=== PATIENT | female | born 1975 | race Two or more races ===

== ENCOUNTER 2024-08-05 08:10 | Inpatient (IN) | payer MEDICAID, SELFPAY ==
[2024-08-05] VITALS (7 sets, daily range): BP systolic 112–130; BP diastolic 79–88; PULSE 83–116; RESP 16–19; TEMP 36–38; O2SAT 98–99; BMI 30.6
--- NOTE | 2024-08-05 08:28 | XR_ITS ---
Examination: CT abdomen and pelvis without contrast. Coronal 3-D reconstructions. Sagittal 2-D reconstructions. Date and time of exam:August 05, 2024 0840 hrs. Indications: Lower abdominal pain and painful urination beginning 3 weeks ago CTDI: vol (mGy): 9.82 DLP: (mGycm): 499 Technique: Axial images of the abdomen have been obtained, 3 mm slice thickness Intravenous contrast material has not been administered. Low dose protocols were performed. One or more of the following dose reduction techniques were used; automated exposure control, adjustment of the mA and/or KV according to patient size, use of iterative reconstruction technique. Findings: Large retrocardiac gastric hernia No focal liver or splenic lesions No gallstones No pancreatic or adrenal mass Moderate left hydronephrosis left hydroureter, no ureteral calculi Aorta normal size No bowel obstruction Normal appendix Axial image 164 demonstrates 30 mm ovoid structure which may represent bowel loop although external iliac lymph node not excluded Colonic diverticulosis Contracted urinary bladder Impression: Moderate left hydronephrosis left hydroureter, no ureteral calculi Axial image 164 demonstrates 30 mm ovoid structure in which may represent bowel loops although extraluminal iliac enlarged lymph node not excluded Recommend follow-up CT scan abdomen pelvis post intravenous and oral contrast to exclude left pelvis lymphadenopathy causing the left hydronephrosis
--- NOTE | 2024-08-05 08:29 | PD.EDRME ---
Rapid Medical Screening Exam RME Arrival date/time: 08/05/24 08:10 48-year-old female presents to the emergency department today stating she has had vaginal infection ongoing for the last 4 months status post hysterectomy Chief Complaint: Urogenital-Female Time Seen by Provider: 08/05/24 08:15 Vital signs: Vital Signs Temperature 100.4 F 08/05/24 08:25 Pulse Rate 116 H 08/05/24 08:25 Respiratory Rate 19 08/05/24 08:25 Blood Pressure 124/79 08/05/24 08:25 Pulse Oximetry (%) 98 08/05/24 08:25 Oxygen Delivery Method Room Air 08/05/24 08:25
[2024-08-05] MEDS: ACETAMINOPHEN 500 MG TABLET 1000 MG PO (08:44)
[2024-08-05 09:18] LABS: Collection Type, Urine Clean Catch
[2024-08-05 09:21] LABS: Lactate (Lactic Acid) 1.2 mMol/L (0.4-2.0)
[2024-08-05 09:22] LABS: Basophils # (Auto) 0.1 Thou/mm3 (0.0-0.2); Basophils % (Auto) 0 % (0-2.5); Eosinophils % (Auto) 0 % (0-10); Hematocrit 29.8 % (36.0-46.0); Hemoglobin 9.7 g/dL (12.0-16.0); Immature Granulocytes % (Auto) 2 % (0-0); Immature Granulocytes Auto 0.21 Thou/mm3 (0.00-0.00); Lymphocytes % (Auto) 7 % (10-50); Mean Corpuscular HGB Conc 32.6 g/dl (31.0-37.0); Mean Corpuscular Hemoglobin 25.6 pg (25.0-35.0); Mean Corpuscular Volume 79 fL (80-100); Monocytes # (Auto) 0.9 Thou/mm3 (0.0-0.8); Monocytes % (Auto) 7 % (0-12); Neutrophils # (Auto) 11.2 Thou/mm3 (1.8-7.7); Neutrophils % (Auto) 84 % (37-80); Nucleated Red Blood Cell % 0 /100 WBC (0); Platelet Count 474 Thou/mm3 (140-440); RDW Standard Deviation 45.3 fL (36.4-46.3); Red Blood Count 3.79 Miln/mm3 (4.00-5.20); White Blood Count 13.3 Thou/mm3 (3.6-11.0)
[2024-08-05 09:24] LABS: Bilirubin,Urine Negative (Negative); Blood,Urine Negative (Negative); Clarity,Urine Clear (Clear/Hazy); Color,Urine Yellow (Lt Yel-Yel); Culture Indicated,Urine Not Indicated; Glucose, Urine Negative (Negative); Ketones,Urine Trace (Negative); Leukocyte Esterase,Urine Positive (Negative); Nitrite,Urine Negative (Negative); Protein,Urine 1+ (Neg - Trace); RBC,Urine 3 /hpf (0-3); Specific Gravity,Urine 1.023 (1.001-1.035); Squamous Epithelial Cell,Urine 1 /hpf (0-5); Urobilinogen,Urine Negative mg/dL (0.0-1.0); WBC,Urine 9 /hpf (0-5)
[2024-08-05 09:49] LABS: Alanine Aminotransferase 50 U/L (10-49); Albumin, Serum 4.8 gm/dL (3.5-5.0); Albumin/Globulin Ratio 1.5 (1.2-2.2); Alkaline Phosphatase 205 U/L (46-116); Anion Gap 10 (7-16); Aspartate Amino Transferase 27 U/L (0-34); BUN/Creatinine Ratio 10 Ratio (12-20); Bilirubin,Total 0.8 mg/dL (0.3-1.2); Blood Urea Nitrogen 10 mg/dL (9-23); Calcium 9.6 mg/dL (8.3-10.6); Calcium (Corrected) 9.6 mg/dL (8.5-10.1); Carbon Dioxide 25.2 mMol/L (20.0-31.0); Chloride 98 mMol/L (98-107); Estimated Creatinine Clearance 61.7 mL/min (>60); Globulin 3.3 gm/dL (2.3-3.5); Glucose 116 mg/dL (74-106); Lipase 33 U/L (12-53); Osmolality,Calculated 266 (275-295); Potassium 3.8 mMol/L (3.4-5.1); Procalcitonin 0.29 ng/ml (0.0-0.49); Sodium 133 mMol/L (136-145); Total Protein 8.1 gm/dL (5.7-8.2); eGFR > 60 See Note
--- NOTE | 2024-08-05 13:05 | XR_ITS ---
Examination: CT abdomen with intravenous contrast CT pelvis with intravenous contrast 2-D coronal reconstructions 2-D sagittal reconstructions Date and time of exam:August 05, [address] abdomen pelvis without contrast 0840 hrs. This morning Indications: Leaking urine today, fever, clinical diagnosis urinary tract infection. CTDI: vol (mGy) 20.1 DLP: (mGycm) 973 Technique: Multiple axial sections of the abdomen and pelvis have been obtained. 64 slice high-resolution scanner used. 3 mm axial sections have been obtained, post intravenous injection 60 cc [id number] 2-D sagittal, coronal reconstructions obtained. Low dose protocols were performed. One or more of the following dose reduction techniques were used; automated exposure control, adjustment of the mA and/or KV according to patient size, use of iterative reconstruction technique. Findings: Large retrocardiac gastric hernia No focal liver or splenic lesions No gallstones No pancreatic mass Moderate left hydronephrosis left hydroureter which appears to be secondary to 3 cm left external iliac lymph node axial image 165 Cystic mass fluid containing anterior to the rectum and posterior to the urinary bladder, axial image 181, 4.4 cm transverse dimension AP dimension 1.8 cm Contracted urinary bladder Impression: Moderate left hydronephrosis left hydroureter which appears to be secondary to 3 cm left external iliac lymph node, recommend PET CT scan follow-up Cystic fluid containing mass anterior to the rectum and posterior to the urinary bladder, axial image 181, sagittal image 97, 4.4 cm transverse dimension AP dimension 1.8 cm, consider abscess at this site, clinical correlation advised
--- NOTE | 2024-08-05 13:06 | EDNOTE_ITS ---
<Statement entered by Lorena Marie MD - 08/05/24 17:53> As co-signing physician, I was present and available for consult prn. I concur with the plan and care as documented by the midlevel provider. ED General RME/HPI General Chief complaint: Urogenital-Female Stated complaint: VOMITING/FEVER x 3 WKS, UTI x 3 MONTHS Time Seen by Provider: 08/05/24 08:15 Arrival date/time: 08/05/24 08:10 CC: Left lower quadrant abdominal pain HPI ongoing for the past 2 weeks with a progressive increase in severity. Was seen by Dr. Ms. Ziegler 4 days ago and started on antibiotics and was told if there is a worsening of symptoms return the emergency room for IV antibiotics. The patient had a hysterectomy 3 months ago and has had continued to have admissions for abdominal pain. Patient is awake alert oriented low-grade fever mild discomfort but not in any acute distress. RME / HPI RME / HPI narrative: 08/05/24 08:10 48-year-old female presents to the emergency department today stating she has had vaginal infection ongoing for the last 4 months status post hysterectomy Related Data Home Medications ?Medication ?Instructions ?Recorded ?Confirmed docusate sodium 100 mg capsule 100 mg PO QDAY 04/08/24 04/09/24 olmesartan 20 mg tablet (Benicar) 10 mg PO QDAY 04/08/24 04/09/24 sennosides 8.6 mg tablet (senna) 8.6 mg PO BID PRN Constipation 04/08/24 04/09/24 rhubarb root extract 4 mg tablet 4 mg PO QDAY 04/09/24 04/09/24 (Estroven Complete Menopause Relief) Allergies Allergy/AdvReac Type Severity Reaction Status Date / Time No Known Allergies Allergy Verified 08/05/24 08:13 Review of Systems Review of Systems Narrative Review of Systems: GEN: No fever, no chills, no weight loss EYES: No discharge, no visual changes, no pain HEENT: No ear pain, no congestion, no sore throat PULM: No shortness of breath, no cough, no congestion CV: No chest pain, no dyspnea on exertion, no palpitations GI: No nausea, no vomiting, no diarrhea, + pain, no constipation : No frequency, no urgency, no dysuria MUSC/SKEL: No joint pain, no back pain SKIN: No rash PSYCH: No hallucinations, no depression HEME/LYMPH: No easy bleeding or bruising tendencies NEURO: No weakness, no headache Past Medical History Past Medical History NEUROLOGIC: Negative Neurological Disorders or Seizures CARDIAC: Positive Hypertension and Varicose Veins; Negative Cardiac Disorders or Congestive Heart Failure RESPIRATORY: Negative Chronic Obstructive Pulmonary Disease (COPD) or Asthma GASTROINTESTINAL: Positive Gastrointestinal Disorders and Obesity; Negative Hepatitis GENITOURINARY: Negative Genitourinary Disorders or Renal Disease REPRODUCTIVE: Positive Previous Pregnancies; Negative Genital Herpes, Gonorrhea or Syphilis MUSCULOSKELETAL: Negative Musculoskeletal Disorders ENDOCRINE: Negative Endocrine Disorders, Diabetes Mellitus Type 1 or Diabetes Mellitus Type 2 HEMATOLOGIC: Negative Blood Disorders or Sickle Cell Disease OTHER HISTORY: Positive Hospitalization; Negative Autoimmune Disease, Shingles, Falls, Blood Transfusions, Blood Transfusion Reaction, Anesthesia Reactions, MRSA or Cancer Family History FAMILY HISTORY: Negative Family Psychiatric Problems, Family Respiratory Disorders, Family Cardiac Disorders, Family Gastrointestinal Problems, Family Cancer, Family Surgery or Family Anesthesia Reaction Surgical History SURGICAL: Positive Hysterectomy (April 09, 2024.) and Tubal Ligation (April.) Social History SMOKING STATUS: Never smoker ED Exam Narrative Physical exam: [General: Pale, in mild discomfort but not in any acute distress Head normocephalic HEENT: Eyes: Pupils are PERRLA EOMs are intact conjunctiva's are not blanched, all other subsystems of HEENT are within acceptable limits Neck is supple nontender Chest equal chest rise nontender to palpation Respiratory: Clear to auscultation no wheezes crackles or rubs CV: Rate rhythm is regular no murmurs rubs or clicks Abdomen is soft left lower quadrant tenderness without reflexive guarding or rebound tenderness no pain in the right lower quadrant or upper quadrants. Back: No CVA tenderness no spinous process tenderness from cervical spine thoracic and lumbar spine Skin: Intact no petechiae rash induration ulceration or crepitus Extremities: Moving all extremity against resistance cap refill less than 2 seconds neurosensory intact Neuro: Awake alert oriented x3 Glascow coma 15 no focal deficits] Course Quality Measures none Orders Category Date Time Status Saline [Insert IV] NOW Care 08/05/24 13:[address] abdomen pelvis wo con Stat Exams 08/05/24 08:28 Completed Blood Culture (Lab) Stat Lab 08/05/24 09:00 Received CBC Stat Lab 08/05/24 09:05 Completed Comprehensive Metabolic Panel Stat Lab 08/05/24 09:05 Completed Lactic Acid [Lactate (Lactic Acid)] Stat Lab 08/05/24 09:05 Completed Lipase Stat Lab 08/05/24 09:05 Completed Procalcitonin Stat Lab 08/05/24 09:05 Completed UA, C/S IF [Urinalysis, C/S if Indicated] Stat Lab 08/05/24 08:50 Completed Acetaminophen Tab [Tylenol ES Tab] Med 08/05/24 08:29 Discontinued 1,000 mg PO X1 ONE Piper/Tazo 3.375 gm [Zosyn] Med 08/05/24 13:05 Active 3.375 gm in 50 ml IV X1 Vital Signs Vital signs: Vital Signs Temperature 100.4 F 08/05/24 08:25 Pulse Rate 116 H 08/05/24 08:25 Respiratory Rate 19 08/05/24 08:25 Blood Pressure 124/79 08/05/24 08:25 Pulse Oximetry (%) 98 08/05/24 08:25 Oxygen Delivery Method Room Air 08/05/24 08:25 [facility] Patient data External records reviewed:: [facility] previous records Clinical information provided by:: patient Social determinants that could affect healthcare access:: none Patient has the following chronic illnesses:: Recent hysterectomy How is presenting disease/condition affected by chronic disease/condition?: e xacerbated by Evaluation data The following diagnostics were reviewed and interpreted by me:: lab results and radiology exam(s) Lab and/or radiology exams considered but not ordered:: CBC shows a leukocytosis of 13,000 with mild downtrending anemia current hemoglobin at 9.7, no leukocytosis CMP shows no significant electrolyte imbalances other than a mildly elevated glucose, no renal impairment transaminitis or T. bili elevation UA shows 9 WBCs with no other indications of urinary tract infection Interpretation Summary: Low center abdominal pain, patient's case discussed with Dr. Blackwell who agrees to accept the patient for admission for IV antibiotic therapy patient is agreement with this plan. Medications Medications considered but not ordered:: None Medication administrations:: Medication Administration History Piperacillin/Tazobactam/Dextrose (Zosyn) 3.375 gm in 50 mls @ 100 mls/hr IV X1 ONE Stop: 08/05/24 13:34 Discontinued Medications Acetaminophen (Acetaminophen 500 Mg Tablet) 1,000 mg PO X1 ONE Stop: 08/05/24 08:30 Last Admin: 08/05/24 08:44 Dose: 1,000 mg Documented By: NELLIE None Consultations Consultation(s) initiated? (list below): Yes Consultation #1 (Physician, Specialty, Details): Rosalva Time: 13:09 Diagnosis Differential Diagnosis ED Complaint MDM: Abdominal pain leukocytosis Most likely diagnosis given after review of the tests above:: Abdominal pain leukocytosis Admission Indicated Admission indicated?: indicated Explain why admission is indicated or not indicated:: Further medical management Admission Request Was there a request for admission?: No Disposition Plan Disposition Plan: Admit Medical Decision Making Differential Diagnosis Differential Diagnosis: Abdominal pain leukocytosis Lab Data 08/05/24 09:05 08/05/24 09:05 Labs: Lab Results 08/05/24 08/05/24 Range/Units 08:50 09:05 WBC 13.3 H (3.6-11.0) Thou/mm3 RBC 3.79 L (4.00-5.20) Miln/mm3 Hgb 9.7 L (12.0-16.0) g/dL Hct 29.8 L (36.0-46.0) % MCV 79 L (80-100) fL MCH 25.6 (25.0-35.0) pg MCHC 32.6 (31.0-37.0) g/dl RDW Std Deviation 45.3 (36.4-46.3) fL Plt Count 474 H (140-440) Thou/mm3 Neut % (Auto) 84 H (37-80) % Lymph % (Auto) 7 L (10-50) % [place] % (Auto) 7 (0-12) % Eos % (Auto) 0 (0-10) % Baso % (Auto) 0 (0-2.5) % Neut # (Auto) 11.2 H (1.8-7.7) Thou/mm3 Lymph # (Auto) 1.0 (1.0-4.8) Thou/mm3 [place] # (Auto) 0.9 H (0.0-0.8) Thou/mm3 Eos # (Auto) 0.0 (0.0-0.5) Thou/mm3 Baso # (Auto) 0.1 (0.0-0.2) Thou/mm3 Immature Gran # (Auto) 0.21 H (0.00-0.00) Thou/mm3 Absolute Nucleated RBC 0.00 (0.00-0.00) Thou/mm3 Immature Gran % 2 H (0-0) % Nucleated RBC % 0 (0) /100 WBC Sodium 133 L (136-145) mMol/L Potassium 3.8 (3.4-5.1) mMol/L Chloride 98 (98-107) mMol/L Carbon Dioxide 25.2 (20.0-31.0) mMol/L Anion Gap 10 (7-16) BUN 10 (9-23) mg/dL Creatinine 1.0 (0.6-1.3) mg/dL Estim Creat Clear Calc 61.7 (>60) mL/min eGFR > 60 (60 - ) See Note BUN/Creatinine Ratio 10 L (12-20) Ratio Glucose 116 H (74-106) mg/dL Calculated Osmolality 266 L (275-295) Lactic Acid 1.2 (0.4-2.0) mMol/L Calcium 9.6 (8.3-10.6) mg/dL Corrected Calcium 9.6 (8.5-10.1) mg/dL Total Bilirubin 0.8 (0.3-1.2) mg/dL AST 27 (0-34) U/L ALT 50 H (10-49) U/L Alkaline Phosphatase 205 H (46-116) U/L Total Protein 8.1 (5.7-8.2) gm/dL Albumin 4.8 (3.5-5.0) gm/dL Globulin 3.3 (2.3-3.5) gm/dL Albumin/Globulin Ratio 1.5 (1.2-2.2) Lipase 33 (12-53) U/L Procalcitonin 0.29 (0.0-0.49) ng/ml Ur Collection Type Clean Catch Urine Color Yellow (Lt Yel-Yel) Urine Clarity Clear (Clear/Hazy) Urine pH 6.0 (5.0-7.0) Ur Specific [place] 1.023 (1.001-1.035) Urine Protein 1+ A (Neg - Trace) Urine Glucose (UA) Negative (Negative) Urine Ketones Trace (Negative) Urine Blood Negative (Negative) Urine Nitrite Negative (Negative) Urine Bilirubin Negative (Negative) Urine Urobilinogen (Auto) Negative (0.0-1.0) mg/dL Ur Leukocyte Esterase Positive (Negative) Urine RBC 3 (0-3) /hpf Urine WBC 9 H (0-5) /hpf Ur Squamous Epith Cells 1 (0-5) /hpf Urine Bacteria None (None) Ur Culture Indicated? Not Indicated Discharge Plan Plan Patient Disposition: Other Care w/in Hosp ([facility]) Patient condition on transfer: Stable Prescriptions/Referrals Prescriptions/Med Rec: No Action sennosides [senna] 8.6 mg Tablet 8.6 mg PO BID PRN (Reason: Constipation) docusate sodium 100 mg Capsule 100 mg PO QDAY olmesartan [Benicar] 20 mg Tablet 10 mg PO QDAY Estroven Cmplt Menopause Rlf 4 mg Tablet 4 mg PO QDAY Referrals: Odell Blackwell MD [Primary Care Provider] - In 1 week Problem List Clinical Impression: Abdominal pain, Leukocytosis, Fever Patient/Caregiver Discharge Instructions Print Language: Jordanian Stand Alone Forms: Misti Award Info., Patient Portal Info Letter PA/[employer]PER[employer] Supervising Physician PA/[employer] Supervising Physician: Seun Mendoza ENP
--- NOTE | 2024-08-05 13:07 | XR_ITS ---
Examination: PA lateral chest 2 views Technique: Upright PA lateral chest 2 views Exam date and time: August 05, 2024 1319 hrs. Comparison June 08, 2024 Indications: Coughing fever beginning one week ago. Findings: Large retrocardiac gastric hernia. Normal heart size No pneumonia or pulmonary edema. The osseous structures are intact Impression: No pneumonia identified
[2024-08-05] MEDS: PANTOPRAZOLE INJ 40 MG VIAL IVP (15:00)
[2024-08-05] MEDS: PIPER/TAZO 3.375 GM 3.375 GM/50 ML BAG IV ×2 (15:00→21:04)
[2024-08-05] MEDS: SODIUM CHLORIDE 0.9% 1000 ML 1,000 ML 125 ML IV (15:01)
--- NOTE | 2024-08-05 19:29 | PC.NURSE ---
Patient taken to CT via wheelchair. Patient's family is at bedside.
[2024-08-05] MEDS: HYDROcodone/APAP 10/325 TAB PO (20:16)
[2024-08-06] VITALS: BP 110/62; PULSE 73; RESP 16; TEMP 36.3; O2SAT 95
[2024-08-06] MEDS: SODIUM CHLORIDE 0.9% 1000 ML 1,000 ML 125 ML IV ×3 (01:00→20:18)
[2024-08-06 04:00] VITALS: BP 115/71; PULSE 65; RESP 17; TEMP 36.4; O2SAT 98
[2024-08-06] MEDS: PIPER/TAZO 3.375 GM 3.375 GM/50 ML BAG IV ×3 (05:09→21:19)
[2024-08-06 05:28] LABS: Basophils % (Auto) 1 % (0-2.5); Eosinophils % (Auto) 0 % (0-10); Hematocrit 26.1 % (36.0-46.0); Immature Granulocytes % (Auto) 3 % (0-0); Immature Granulocytes Auto 0.22 Thou/mm3 (0.00-0.00); Lymphocytes # (Auto) 0.9 Thou/mm3 (1.0-4.8); Lymphocytes % (Auto) 11 % (10-50); Mean Corpuscular HGB Conc 31.4 g/dl (31.0-37.0); Mean Corpuscular Hemoglobin 25.1 pg (25.0-35.0); Mean Corpuscular Volume 80 fL (80-100); Monocytes # (Auto) 0.6 Thou/mm3 (0.0-0.8); Monocytes % (Auto) 7 % (0-12); Neutrophils # (Auto) 6.5 Thou/mm3 (1.8-7.7); Neutrophils % (Auto) 78 % (37-80); Nucleated Red Blood Cell % 0 /100 WBC (0); Platelet Count 377 Thou/mm3 (140-440); RDW Standard Deviation 45.5 fL (36.4-46.3); Red Blood Count 3.27 Miln/mm3 (4.00-5.20); White Blood Count 8.3 Thou/mm3 (3.6-11.0)
[2024-08-06 05:38] LABS: Hemoglobin 8.2 g/dL (12.0-16.0)
[2024-08-06 06:35] LABS: Alanine Aminotransferase 41 U/L (10-49); Alkaline Phosphatase 171 U/L (46-116); Anion Gap 5 (7-16); Aspartate Amino Transferase 16 U/L (0-34); BUN/Creatinine Ratio 13 Ratio (12-20); Bilirubin,Total 0.4 mg/dL (0.3-1.2); Blood Urea Nitrogen 10 mg/dL (9-23); Calcium 8.8 mg/dL (8.3-10.6); Carbon Dioxide 27.9 mMol/L (20.0-31.0); Chloride 104 mMol/L (98-107); Creatinine (Component) 0.8 mg/dL (0.6-1.3); Estimated Creatinine Clearance 77.1 mL/min (>60); Glucose 105 mg/dL (74-106); Osmolality,Calculated 272 (275-295); Potassium 4.2 mMol/L (3.4-5.1); Sodium 137 mMol/L (136-145); Total Protein 6.8 gm/dL (5.7-8.2); eGFR > 60 See Note
[2024-08-06 07:00] LABS: Albumin, Serum 3.9 gm/dL (3.5-5.0); Albumin/Globulin Ratio 1.3 (1.2-2.2); Calcium (Corrected) 8.9 mg/dL (8.5-10.1); Globulin 2.9 gm/dL (2.3-3.5)
[2024-08-06 07:48] VITALS: BP 130/78; PULSE 80; RESP 15; TEMP 36.4; O2SAT 97
[2024-08-06] MEDS: PANTOPRAZOLE INJ 40 MG VIAL IVP (08:07)
[2024-08-06] MEDS: DOCUSATE SOD 100 MG CAPSULE PO (08:07)
--- NOTE | 2024-08-06 09:42 | PC.SS ---
Follow up note: Pt is on IV antibiotic. Pt will return home upon dc.
[2024-08-06 12:00] VITALS: BP 123/81; PULSE 74; RESP 14; TEMP 36.3; O2SAT 94
--- NOTE | 2024-08-06 12:55 | PC.SS ---
SS met with patient regarding her d/c plan. Pt is alert/oriented. Pt was admitted for Fever. Pt confirmed demographic and contact information is correct on facesheet. Pt resides with and kids. Pt ambulates independently without assistance or DME. Pt is ok with all ADLs. Patient?s pharmacy of choice is [facility]. Pt named her medical decision maker if she is unable. Patient?s choice is to return home upon d/c. Pt states she is not diabetic and is not on dialysis. D/C plan: Return home Next of Kin: Thuan Tai, , phone# [phone] PCP: Dr. Odell Blackwell from [facility] Address: Correct on facesheet
--- NOTE | 2024-08-06 14:51 | PD.GYNHP ---
Documentation for date of: 08/05/24 [employer] - HPI History of Present Illness History of present illness: The patient, a 48-year-old posthysterectomy female, presented with chief complaints of fevers, chills, and pelvic pain. She has a history of total abdominal hysterectomy on 2023, followed by a vaginal cuff abscess diagnosis 7 days later. Despite treatment with levofloxacin and multiple attempts at abscess drainage, the patient continued to experience fevers. Additionally, she reported incontinence without sensation and continuous dribbling of urine. On 2023, the patient returned to the emergency room with fever, chills, and pelvic pain. A CT scan revealed a pelvic abscess, but no abscess cavity could be identified or drained during surgery. The patient was discharged home and followed in the office, with no systemic symptoms except for urinary tract drainage. She has a pending referral for urology but has not yet seen the urologist. The patient now presents to the emergency room again with pelvic pain, fevers, and chills. She has an elevated white blood cell count and has been admitted for IV antibiotics and further evaluation. A non-contrast CT scan on August 05, 2024 showed moderate left hydronephrosis and left hydroureter. A subsequent CT urogram confirmed these findings and revealed a 3cm left external iliac lymph node and a cystic fluid-containing mass anterior to the rectum and posterior to the urinary bladder, measuring 4.4cm in transverse dimension and 1.8cm in AP dimension, presumptively an abscess. ROS: Negative. Diagnostic Test Results and Labs: - CT Scan (08-05-2024): Non-contrast CT showed moderate left hydronephrosis and left hydroureter, a 30 mm ovoid structure possibly representing bowel loops or enlarged lymph nodes. - CT Urogram (Date N/A): Confirmed moderate left hydronephrosis and left hydroureter, noted a 3 cm left external iliac lymph node, and a cystic fluid-containing mass (4.4 cm transverse, 1.8 cm AP dimension) anterior to the rectum and posterior to the urinary bladder, presumptively an abscess. Meds Home Medications and Allergies Home Medications ?Medication ?Instructions ?Recorded ?Confirmed ?Type docusate sodium 100 mg capsule 100 mg PO QDAY 04/08/24 04/09/24 History olmesartan 20 mg tablet (Benicar) 10 mg PO QDAY 04/08/24 04/09/24 History sennosides 8.6 mg tablet (senna) 8.6 mg PO BID PRN Constipation 04/08/24 04/09/24 History rhubarb root extract 4 mg tablet 4 mg PO QDAY 04/09/24 04/09/24 History (Estroven Complete Menopause Relief) Allergies Allergy/AdvReac Type Severity Reaction Status Date / Time No Known Allergies Allergy Verified 08/05/24 08:13 Exam - [employer] Vital Signs Temp Pulse Resp BP Pulse Ox O2 Del Method 97.3 F 74 14 123/81 94 L Room Air 08/06/24 12:00 08/06/24 12:00 08/06/24 12:00 08/06/24 12:00 08/06/24 12:00 08/06/24 12:00 Narrative Exam Physical Examination: - General: Patient alert and oriented x3 - Cardiovascular: Normal rate and rhythm, S1 and S2 present - Respiratory: Lungs clear to auscultation - Abdominal: Epigastric tenderness, no midabdominal or suprapubic tenderness - Extremities: Within normal limits - Psychological: Within normal limits [employer] - Results Labs 08/06/24 04:40 08/06/24 04:40 Labs: Short CBC 08/06/24 Range/Units 04:40 WBC 8.3 D (3.6-11.0) Thou/mm3 Hgb 8.2 L (12.0-16.0) g/dL Hct 26.1 L (36.0-46.0) % Plt Count 377 D (140-440) Thou/mm3 BMP 08/06/24 04:40 Sodium 137 Potassium 4.2 Chloride 104 Carbon Dioxide 27.9 BUN 10 Creatinine 0.8 Glucose 105 Calcium 8.8 Liver Function 08/06/24 Range/Units 04:40 Total Bilirubin 0.4 (0.3-1.2) mg/dL AST 16 (0-34) U/L ALT 41 (10-49) U/L Alkaline Phosphatase 171 H D (46-116) U/L Albumin 3.9 D (3.5-5.0) gm/dL Assessment and Plan Assessment and plan (1) Fever: Status: Acute Assessment and plan: Pelvic Abscess: - Continue IV antibiotics (Zosyn 3.375g every 8 hours) until fever resolves - Monitor CBC every morning - Regular diet - Monitor for signs of sepsis - CT scan shows 4.4cm x 1.8cm cystic fluid mass anterior to rectum and posterior to urinary bladder, presumed abscess Moderate Left Hydronephrosis and Hydroureter: - Consult with urologist Dr. Escobar on 08/10/[address] scan reports in his office. - Consider cystoscopy and ureteral stenting as per urologist's recommendation - Confirmed by non-contrast CT and CT urogram Urinary Incontinence and Continuous Urine Dribbling: - Urinary bladder decompression using Asif catheter - Evaluate for possible ureterovaginal fistula during urology consultation - Differential diagnosis includes urinoma behind bladder and anterior to rectum versus ureteric fistula to vagina Fever and Elevated White Blood Cell Count: - IV hydration with normal saline at 125 cc per hour - Tylenol as needed for fever Pain Management: - Oral pain medications as needed Follow-up and Monitoring: - Office follow-up for symptom monitoring - Continue processing urology referral - Patient counseled on inconclusive CT scans and multiple interventions (2) Leukocytosis: Status: Acute (3) S/P total abdominal hysterectomy: Status: Acute Quality Measures Quality Measures none
[2024-08-06 16:00] VITALS: BP 131/89; PULSE 80; RESP 16; TEMP 36.3; O2SAT 98
[2024-08-06 20:00] VITALS: BP 121/74; PULSE 70; RESP 17; TEMP 36.7; O2SAT 98
[2024-08-07] VITALS: BP 119/75; PULSE 70; RESP 16; TEMP 36.2; O2SAT 98
[2024-08-07 04:00] VITALS: BP 121/78; PULSE 79; RESP 18; TEMP 36.5; O2SAT 98
[2024-08-07] MEDS: SODIUM CHLORIDE 0.9% 1000 ML 1,000 ML 125 ML IV (05:17)
[2024-08-07] MEDS: PIPER/TAZO 3.375 GM 3.375 GM/50 ML BAG IV (05:18)
[2024-08-07 05:52] LABS: Basophils % (Auto) 1 % (0-2.5); Eosinophils % (Auto) 0 % (0-10); Hematocrit 28.5 % (36.0-46.0); Hemoglobin 9.1 g/dL (12.0-16.0); Immature Granulocytes % (Auto) 3 % (0-0); Immature Granulocytes Auto 0.23 Thou/mm3 (0.00-0.00); Lymphocytes # (Auto) 1.1 Thou/mm3 (1.0-4.8); Lymphocytes % (Auto) 16 % (10-50); Mean Corpuscular HGB Conc 31.9 g/dl (31.0-37.0); Mean Corpuscular Hemoglobin 25.3 pg (25.0-35.0); Mean Corpuscular Volume 79 fL (80-100); Monocytes # (Auto) 0.4 Thou/mm3 (0.0-0.8); Monocytes % (Auto) 6 % (0-12); Neutrophils % (Auto) 73 % (37-80); Nucleated Red Blood Cell % 0 /100 WBC (0); Platelet Count 441 Thou/mm3 (140-440); RDW Standard Deviation 44.9 fL (36.4-46.3); White Blood Count 6.9 Thou/mm3 (3.6-11.0)
[2024-08-07 08:00] VITALS: BP 133/83; PULSE 84; RESP 17; TEMP 36.2; O2SAT 98
[2024-08-07] MEDS: PANTOPRAZOLE INJ 40 MG VIAL IVP (08:00)
[2024-08-07] MEDS: DOCUSATE SOD 100 MG CAPSULE PO (08:00)
--- NOTE | 2024-08-07 08:37 | ESPR_ITS ---
Documentation for date of: 08/07/24 CHARGE ENTRY SPECIALIST Subjective Subjective Interval history: Patient doing well this morning. Fever has completely resolved. Continues to have incontinence without awareness as noted below. Patient was informed that she has an appointment with the urologist on 08/10/2024 for office evaluation/cystoscopy and definitive treatment as needed. I/H The patient, a 48-year-old posthysterectomy female, presented with chief complaints of fevers, chills, and pelvic pain. She has a history of total abdominal hysterectomy on 2023, followed by a vaginal cuff abscess diagnosis 7 days later. Despite treatment with levofloxacin and multiple attempts at abscess drainage, the patient continued to experience fevers. Additionally, she reported incontinence without sensation and continuous dribbling of urine. On 2023, the patient returned to the emergency room with fever, chills, and pelvic pain. A CT scan revealed a pelvic abscess, but no abscess cavity could be identified or drained during surgery. The patient was discharged home and followed in the office, with no systemic symptoms except for urinary tract drainage. She has a pending referral for urology but has not yet seen the urologist. The patient now presents to the emergency room again with pelvic pain, fevers, and chills. She has an elevated white blood cell count and has been admitted for IV antibiotics and further evaluation. A non-contrast CT scan on August 05, 2024 showed moderate left hydronephrosis and left hydroureter. A subsequent CT urogram confirmed these findings and revealed a 3cm left external iliac lymph node and a cystic fluid-containing mass anterior to the rectum and posterior to the urinary bladder, measuring 4.4cm in transverse dimension and 1.8cm in AP dimension, presumptively an abscess. ROS: Negative. Diagnostic Test Results and Labs: - CT Scan (08-05-2024): Non-contrast CT showed moderate left hydronephrosis and left hydroureter, a 30 mm ovoid structure possibly representing bowel loops or enlarged lymph nodes. - CT Urogram (Date N/A): Confirmed moderate left hydronephrosis and left hydroureter, noted a 3 cm left external iliac lymph node, and a cystic fluid- containing mass (4.4 cm transverse, 1.8 cm AP dimension) anterior to the rectum and posterior to the urinary bladder, presumptively an abscess. Exam Vital Signs Temp Pulse Resp BP Pulse Ox O2 Del Method 97.2 F 84 17 133/83 H 98 Room Air 08/07/24 08:00 08/07/24 08:00 08/07/24 08:00 08/07/24 08:00 08/07/24 08:00 08/07/24 08:00 Constitutional Constitutional: no acute distress Routine HEENT Exam Head: Present normocephalic and atraumatic Eye: Present EOMI and PERRL ENT: Present mucous membranes moist Routine Neck Exam Neck: Present supple and trachea midline Routine Respiratory Exam Respiratory: Present chest non-tender, lungs clear, normal breath sounds and no resp distress Routine Cardiovascular Exam Cardiovascular: Present RRR Routine Abdominal Exam Abdominal: Present soft and normoactive bowel sounds Routine Extremities Exam Extremities: Present full ROM Routine Skin Exam Skin: Present intact and dry Routine Neurological Exam Neurological: Present alert, oriented X3 and CN II-XII intact Routine Psychiatric Exam Psychiatric: Present normal affect and normal thought process Urinary Catheter Management Cath placed during this visit: no CHARGE ENTRY SPECIALIST - PN: Obj Data Labs 08/07/24 05:09 08/06/24 04:40 Labs: Laboratory Results - last 24 hr 08/07/24 05:09 WBC 6.9 RBC 3.60 L Hgb 9.1 L Hct 28.5 L MCV 79 L MCH 25.3 MCHC 31.9 RDW Std Deviation 44.9 Plt Count 441 H D Neut % (Auto) 73 Lymph % (Auto) 16 [place] % (Auto) 6 Eos % (Auto) 0 Baso % (Auto) 1 Neut # (Auto) 5.0 Lymph # (Auto) 1.1 [place] # (Auto) 0.4 Eos # (Auto) 0.0 Baso # (Auto) 0.0 Immature Gran # (Auto) 0.23 H Absolute Nucleated RBC 0.00 Immature Gran % 3 H Nucleated RBC % 0 CHARGE ENTRY SPECIALIST - A/P Assessment and plan (1) Fever: Status: Acute Assessment and plan: Fever resolved. Patient will be discharged home today on p.o. antibiotics. All her imaging was printed out and provided to her with details about her appointment with the urologist (2) Leukocytosis: Status: Acute (3) S/P total abdominal hysterectomy: Status: Acute Time Spent With Patient Time: Total time spent is greater than 50% in coordination of care (as documented) at patient's floor/unit and/or counseling patient: Time with patient: less than 15 minutes
--- NOTE | 2024-08-07 10:11 | PC.SS ---
Pt is d/c home today.
== END 2024-08-07 10:15 | disposition home or self-care (01) | DRG 531 ==
LOC: SERX 13:10 → SERHOLD 13:37 → S3NX 16:00
PROVIDERS: Nurse Practitioner Primary Care; Admitting Provider Obstetrics & Gynecology; Emergency Provider Emergency Medicine; PCP Obstetrics & Gynecology; Visit Provider Obstetrics & Gynecology
DX: N73.9 Female pelvic inflammatory disease, unspecified (principal); N13.30 Unspecified hydronephrosis; Z90.710 Acquired absence of both cervix and uterus; R32 Unspecified urinary incontinence
CPT/HCPCS: 36415; 71046; 74176; 74177; 80053; 81001; 83605; 83690; 84145; 85025; 87040; 99285; A4649; J2470; J2543; J7030; Q9967; A9270

== ENCOUNTER 2024-09-04 06:02 | Day surgery (SDC) | payer MEDICAID, SELFPAY ==
[2024-09-02 11:02] VITALS: BMI 32.1
[2024-09-02 11:27] LABS: Collection Type, Urine Clean Catch
[2024-09-02 11:42] LABS: Bacteria,Urine Rare; Bilirubin,Urine Negative (Negative); Blood,Urine Negative (Negative); Clarity,Urine Clear (Clear/Hazy); Color,Urine Lt-Yellow (Lt Yel-Yel); Glucose, Urine Negative (Negative); Ketones,Urine Negative (Negative); Leukocyte Esterase,Urine Negative (Negative); Nitrite,Urine Negative (Negative); PH,Urine 6.5 (5.0-7.0); Protein,Urine Negative (Neg - Trace); RBC,Urine 2 /hpf (0-3); Specific Gravity,Urine 1.019 (1.001-1.035); Squamous Epithelial Cell,Urine 1 /hpf (0-5); Urobilinogen,Urine Negative mg/dL (0.0-1.0); WBC,Urine 3 /hpf (0-5)
[2024-09-02 11:42] LABS: Basophils # (Auto) 0.1 Thou/mm3 (0.0-0.2); Basophils % (Auto) 1 % (0-2.5); Eosinophils # (Auto) 0.2 Thou/mm3 (0.0-0.5); Eosinophils % (Auto) 3 % (0-10); Hematocrit 39.3 % (36.0-46.0); Hemoglobin 12.6 g/dL (12.0-16.0); Immature Granulocytes % (Auto) 2 % (0-0); Immature Granulocytes Auto 0.13 Thou/mm3 (0.00-0.00); Lymphocytes # (Auto) 1.6 Thou/mm3 (1.0-4.8); Lymphocytes % (Auto) 22 % (10-50); Mean Corpuscular HGB Conc 32.1 g/dl (31.0-37.0); Mean Corpuscular Hemoglobin 26.1 pg (25.0-35.0); Mean Corpuscular Volume 82 fL (80-100); Monocytes # (Auto) 0.5 Thou/mm3 (0.0-0.8); Monocytes % (Auto) 7 % (0-12); Neutrophils # (Auto) 4.7 Thou/mm3 (1.8-7.7); Neutrophils % (Auto) 65 % (37-80); Nucleated Red Blood Cell % 0 /100 WBC (0); Platelet Count 248 Thou/mm3 (140-440); RDW Standard Deviation 52.9 fL (36.4-46.3); Red Blood Count 4.82 Miln/mm3 (4.00-5.20); White Blood Count 7.2 Thou/mm3 (3.6-11.0)
[2024-09-02 12:06] LABS: Alanine Aminotransferase 17 U/L (10-49); Albumin/Globulin Ratio 1.8 (1.2-2.2); Alkaline Phosphatase 74 U/L (46-116); Anion Gap 10 (7-16); Aspartate Amino Transferase 17 U/L (0-34); BUN/Creatinine Ratio 14 Ratio (12-20); Bilirubin,Total 0.6 mg/dL (0.3-1.2); Blood Urea Nitrogen 11 mg/dL (9-23); Calcium 9.7 mg/dL (8.3-10.6); Calcium (Corrected) 9.7 mg/dL (8.5-10.1); Carbon Dioxide 26.3 mMol/L (20.0-31.0); Chloride 101 mMol/L (98-107); Creatinine (Component) 0.8 mg/dL (0.6-1.3); Estimated Creatinine Clearance 79.1 mL/min (>60); Globulin 2.8 gm/dL (2.3-3.5); Glucose 97 mg/dL (74-106); Osmolality,Calculated 273 (275-295); Potassium 3.6 mMol/L (3.4-5.1); Sodium 137 mMol/L (136-145); Total Protein 7.8 gm/dL (5.7-8.2); eGFR > 60 See Note
--- NOTE | 2024-09-03 13:16 | ESHP_ITS ---
RE: BHAVESH ALLEN : 1975 DATE OF ADMISSION: 09/04/2024 HISTORY OF PRESENT ILLNESS: The patient is a 48-year-old female, Frisian- speaking. She has a leaking from the bladder all the time. She had a transabdominal hysterectomy done by Dr. Blackwell in 04/2024. She has another surgery in 06/2024 for some infections. She has been dribbling urine from the vagina. There is a possibility of vesicovaginal fistula. PAST MEDICAL HISTORY: Hypertension. No history of diabetes mellitus. SOCIAL HISTORY: The patient has 5 kids. HOME MEDICATIONS: The patient takes, 1. Augmentin. 2. Cipro. ALLERGIES: NONE KNOWN. PHYSICAL EXAMINATION: HEENT: Normal. NECK: Supple. LUNGS: Clear. CARDIOVASCULAR: Heart sounds are normal. ABDOMEN: Soft. There is a Pfannenstiel incision in the lower abdomen. GENITOURINARY: Pelvic examination revealed no uterus. The patient's uterus has been out. The patient has some wetness in the vagina. LABORATORY DATA: The patient had a CT scan of the abdomen and pelvis, which revealed left hydronephrosis. IMPRESSION: 1. Urinary incontinence. 2. Possible vesicovaginal fistula. PLAN: The patient is scheduled to have cystoscopy, left retrograde pyelogram, evaluate her for vesicovaginal or ureterovaginal fistula. The patient may require left ureteroscopy. Planned procedure, risks and complications have been discussed with the patient. The patient has understood them and agreed to proceed. DT: 12:02:52 TT: 13:14:00 Ref: [id number] - TID: [id number]
[2024-09-04] VITALS (10 sets, daily range): BP systolic 161–192; BP diastolic 87–113; PULSE 77–98; RESP 13–18; TEMP 36.6–36.9; O2SAT 98–100; BMI 32.3
[2024-09-04] MEDS: RINGERS LACTATED 1000 ML 1,000 ML 20 ML IV (06:43)
--- NOTE | 2024-09-04 08:30 | XR_ITS ---
Examination: Retrograde pyelogram left with without KUB Fluoroscopy AP abdomen 4 views Exam date and time: September 04, 2024 0915 hours INDICATIONS: History urinary tract infection, left hydronephrosis on CT urogram August 05, 2024 TECHNIQUE AND FINDINGS: 4 spot fluoroscopic films of the abdomen Contrast opacifies dilated ureter There is no visualization of a left ureteral stent Fluoroscopy 28 seconds radiation dose 12.37 milligray IMPRESSION: Retrograde pyelogram as above
--- NOTE | 2024-09-04 10:10 | SUR.PHASEI ---
1010 Patient arrived to recovery resting comfortably in [facility], sleeping able to arouse and then drifts back to sleep, on oxygen 4L via nasal cannula, breathing unlabored, vital signs stable, denies pain, lung sounds clear upon auscultation, bilateral radial pulses present when palpated, report received from Dr. Otoole and Fawad SHEETS
[2024-09-04] MEDS: fentaNYL CIT INJ 50 mCg/ML AMP 2ML IV (10:41)
[2024-09-04] MEDS: KETOROLAC INJ 30 MG/ML VIAL IVP (10:43)
--- NOTE | 2024-09-04 11:36 | SUR.PHASEII ---
1136 Patient meets discharge criteria from recovery, awake and alert, breathing unlabored, vital signs stable, denies pain, drinking water; tolerating well, denies nausea, patient voided in the restroom prior to discharge, patient assisted with dressing into her clothing by her , discharge instructions given to patient and patients with the assistance of the telephone nutrition services manager Herb ID# [id number], signed discharge instructions. Patient given all her belongings prior to discharge, transported via wheelchair and left in a private vehicle.
--- NOTE | 2024-09-04 15:29 | ESOP_ITS ---
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 PROCEDURES PERFORMED: Cystoscopy, left retrograde pyelogram, attempted left ureteroscopy and attempted left ureteral stent insertion and vaginoscopy also. INDICATION: The patient is a 48-year-old female who had a transvaginal hysterectomy. She had some infection in her abdomen and she had another surgery. This was done in April of last year. She had some x-rays done, which revealed left-sided hydronephrosis and she has been leaking urine through the vagina all the time and is wearing a diaper. She was now scheduled to have cystoscopy, left retrograde pyelogram, possible insertion of left ureteral stent. Plan, procedure, risks and complications have been discussed with the patient. The patient understood them and agreed to proceed. DESCRIPTION OF PROCEDURE: After the patient was brought to the operating table under adequate general anesthesia given by Dr. Otoole, she was placed in dorsal lithotomy position. Parts were prepped and draped in the usual fashion. Cystoscopy was then carried out. The patient does have some excoriation of her private parts, possibly from chronic leakage of urine from the vagina. Cystoscopy was then carried out, which revealed adequate urethral meatus, normal-appearing urethra. A residual urine was collected for urine culture sensitivity examination, which was about 2 ounces. There are no intravesical stones or tumors. Ureteral orifices are found to be normal in position appearance. There was no evidence of any fistula opening in the vagina. Open- trip ureteral catheter was introduced into the left ureteral orifice. It went up for about 1 cm or so and then it met an obstruction. I did a retrograde pyelogram which revealed a very tight obstruction at the left distal ureter but there was a hydronephrosis for the proximal left ureter which was a moderate amount. I could not see any fistulas opening from the ureter to the vagina but the ureter appeared to be obstructed. I did a ureteroscopy through the ureteral orifice. Ultra thin ureteroscope was introduced. It showed an obstruction in the left distal ureter, 1 cm from the left ureteral orifice and I could not insert even a small guidewire through that tiny opening in the left ureter. It went in and curled and it would not go proximally into the left ureter. So as I could not pass any guidewire up the ureter I could not pass any stent. I did a vaginoscopy. The patient has on the left side on the apex, there is an induration and possibly a small vaginal fistula. Most probably, the patient does have a left distal ureteral vaginal fistula, which would require further surgery. Procedure was then terminated. The patient tolerated the entire procedure well and left the room in good condition. DT: 11:15:33 TT: 15:28:00 Ref: [id number] - TID: [id number]
--- NOTE | 2024-09-08 13:58 | ESPR_ITS ---
Documentation for date of: 09/08/24 POST ANESTHESIA NOTE: Patient had general anesthesia for cysto and procedure on 09/04/24. Pre-op, she reported h/o PONV lasting more than 1 day and after risk/benefit discussion and education, she was given Scop patch. I just called and spoke with her on the phone via certified court/medical interpreter and she r eported having PONV but for only few hours this time and she reported she took off the patch the same day although I had educated her that she can keep the patch for 3 days to help with PONV but she could take it off sooner if she did not like any side effects she was educated about. She had no further questions for me. Jared Otoole MD Anesthesia Progress Note Progress Note Most recent Vital Signs: Last Vital Signs Temp 98.0 F 09/04/24 11:36 Pulse 98 09/04/24 11:10 Resp 15 09/04/24 11:10 BP 173/98 H 09/04/24 11:10 Pulse Ox 98 09/04/24 11:10 O2 Flow Rate 4 09/04/24 10:25
== END 2024-09-04 11:36 | disposition home or self-care (01) ==
PROVIDERS: Anesthesiology; PCP Family Medicine; Referring Provider Surgery; Visit Provider Surgery
PROC: 0TJB8ZZ Inspection of Bladder, Via Natural or Artificial Opening Endoscopic (ICD-10-PCS; CPT 52000; principal; 2024-09-04 08:30)
DX: R32 Unspecified urinary incontinence (principal); N13.30 Unspecified hydronephrosis; I10 Essential (primary) hypertension; Z87.440 Personal history of urinary (tract) infections; Z90.710 Acquired absence of both cervix and uterus
CPT/HCPCS: 52005; 57420; 52332; 36415; 74420; 80053; 81001; 85025; 87077; 87086; 87186; A4217; A4649; C1769; C1894; J0360; J0694; J1100; J1885; J2371; J2405; J2704; J2710; J3010; J3490; J7120; Q9968; J1596; J1805

== ENCOUNTER 2024-09-17 06:26 | Emergency (ER) | payer MEDICAID, SELFPAY ==
[2024-09-17 06:29] VITALS: BP 178/119; PULSE 87; RESP 17; TEMP 36.7; O2SAT 100
--- NOTE | 2024-09-17 06:37 | PD.EDRME ---
Rapid Medical Screening Exam RME Arrival date/time: 09/17/24 06:26 48-year-old female with no known medical history presents to the emergency room with a chief complaint of acute urinary retention since 1 AM today. Patient states she is unable to urinate and is causing her abdominal pain. I have greeted and performed a focused initial assessment of this patient. A comprehensive ED assessment and evaluation of the patient, analysis of all test results, and completion of the medical decision making process will be conducted by additional ED providers. Chief Complaint: Abdominal Pain Vital signs: Vital Signs Temperature 98.1 F 09/17/24 06:29 Pulse Rate 87 09/17/24 06:29 Respiratory Rate 17 09/17/24 06:29 Blood Pressure 178/119 H 09/17/24 06:29 Pulse Oximetry (%) 100 09/17/24 06:29 Oxygen Delivery Method Room Air 09/17/24 06:29 Vital signs reviewed by provider: Yes
--- NOTE | 2024-09-17 06:45 | EDNOTE_ITS ---
<Statement entered by Lorena Marie MD - 09/24/24 19:35> I, Lorena Marie MD, have reviewed the history, exam, and assessment of the patient. I have evaluated the patient independently and agree with the plan of care documented by [ ]. All diagnostic studies were reviewed and discussed. I confirm the diagnosis as documented by the Resident. I was present during the Medical Decision Making for this patient. The patient's plan of care was created between myself and the Resident and consistent with our discussion of the patient's case. ED Female Urogenital RME/HPI General Chief complaint: Abdominal Pain Stated complaint: ABD PAIN Time Seen by Provider: 09/17/24 06:42 Arrival date/time: 09/17/24 06:26 RME / HPI RME / HPI Narrative: 09/17/24 06:26 48-year-old female with no known medical history presents to the emergency room with a chief complaint of acute urinary retention since 1 AM today. Patient states she is unable to urinate and is causing her abdominal pain. I have greeted and performed a focused initial assessment of this patient. A comprehensive ED assessment and evaluation of the patient, analysis of all test results, and completion of the medical decision making process will be conducted by additional ED providers. Main ED Assessment: Patient is a 48-year-old female with past medical history of hypertension who presented to the ED on 09/17/2024 with a chief complaint of suprapubic pain starting around 1 am this morning with associated inability to urinate. Patient mentioned associated nausea and vomiting about 4 episodes of yellowish clear contents. She denies any fevers, chills, sweats. She denies any diarrhea. Patient states she has not had this type of difficulty urinating before. Patient had a total abdominal hysterectomy in April 2024 after which she had been experiencing complications of urinary incontinence, subsequently followed by Dr. Escobar and had cystoscopy done. 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 Patient reports she is supposed to be scheduled for a follow up surgery in [place]. Complaint: other Onset (ago): hour(s) Location: suprapubic Radiation: non-radiating Severity: moderate Related Data Previous Rx's ?Medication ?Instructions ?Recorded nitrofurantoin 100 mg PO BID #30 caps 09/04 monohydrate/macrocrystals 100 mg capsule (Macrobid) Allergies Allergy/AdvReac Type Severity Reaction Status Date / Time No Known Allergies Allergy Verified 09/17/24 06:29 Past Medical History Past Medical History Comments H COMMENT: Past Medical History: Hypertension Family History: Noncontributory Surgical History: Total abdominal hysterectomy 04/2024, cystoscopy 09/04/2024 Social History: Denies history of smoking, denies current alcohol use, denies recreational drug use Current Medications: Antihypertensive and antibiotic with 2 days left (Source: Patient) Allergies: No known drug allergies ED Exam Narrative Physical exam: Physical Exam General: Awake and in no acute distress. Conversational and non-toxic appearing. HEENT: Normocephalic, atraumatic, mucous membranes moist. Heart: Regular rate and rhythm, no murmurs. Lungs: Clear to auscultation with no wheezing or crackles. Abdomen: Soft, nondistended, tenderness to palpation suprapubic area, positive bowel sounds. ?No guarding or rebound tenderness. Neurologic: Alert and oriented x3, no gross neurological deficit, and patient able to move all 4 extremities. Extremities: No edema. Skin: No rash or ecchymoses. Course Quality Measures none Orders Category Date Time Status CT Screening NOW Care 09/17/24 07:51 Completed Asif [Urinary Catheter, Remove] ONCE Care 09/17/24 13:13 Completed Asif [Urinary Catheter] QS Care 09/17/24 06:36 Completed Insert IV NOW Care 09/17/24 06:[address] abdomen pelvis w con Stat Exams 09/17/24 07:51 Completed CBC Stat Lab 09/17/24 06:55 Completed CMP [Comprehensive Metabolic Panel] Stat Lab 09/17/24 06:55 Completed HCG Qualitative,Urine Stat Lab 09/17/24 06:57 Completed Lipase Stat Lab 09/17/24 06:55 Completed UA [Urinalysis] Stat Lab 09/17/24 06:57 Completed Urine Culture Stat Lab 09/17/24 06:57 Received Acetaminophen Tab [Tylenol Tab] Med 09/17/24 14:14 Discontinued 650 mg PO X1 ONE Ketorolac Inj [Toradol Inj] Med 09/17/24 06:36 Discontinued 30 mg IVP X1 ONE Reevaluation(s) Reevaluation #1: 14:10 - Patient was resassessed, stated her suprapubic pain was about 5/10. Patient was shared results of CT study. Patient has not felt the need to void yet since Asif has been taken out. Patient was given 300 ml ice water, will assess whether patient can urinate on her own before discharge. Vital Signs Vital signs: Vital Signs Temperature 98.1 F 09/17/24 06:29 Pulse Rate 87 09/17/24 06:29 Respiratory Rate 17 09/17/24 06:29 Blood Pressure 178/119 H 09/17/24 06:29 Pulse Oximetry (%) 100 09/17/24 06:29 Oxygen Delivery Method Room Air 09/17/24 06:29 Urogenital - Female MDM Narrative MDM Narrative:: Patient will undergo the following studies to evaluate etiology of suprapubic pain and urinary retention. Given the patient's recent Urologic history, differentials of the suprapubic pain include urinary obstruction secondary to anatomic blockage, fistula, ureteral stones, abscess, mass/tumor. CT abdomen/pelvis with contrast is ordered, results showed 3 cm left external iliac lymph node and also 23 mm hypodense right common femoral mass which may represent a necrotic lymph node. Patient was shared results and informed to follow up with her PCP regarding the study. CT did not show anything which would suggest cause to urinary obstruction. There is a left sided chronic hydronephrosis. UA shows 1+ protein but is otherwise clean for any evidence of infection or blood. Urine culture was sent. Specific gravity of 1.026 indicated some concentration. Patient data External records reviewed:: [facility] previous records Clinical information provided by:: patient Social determinants that could affect healthcare access:: none Patient has the following chronic illnesses:: Hypertension How is presenting disease/condition affected by chronic disease/condition?: uneffected by Evaluation data The following diagnostics were reviewed and interpreted by me:: lab results, radiology exam(s) and EKG tracing(s) Lab and/or radiology exams considered but not ordered:: Ordered Interpretation Summary: CT abdomen/pelvis with contrast Findings: Large retrocardiac gastric hernia No focal liver or splenic lesion No gallstones No pancreatic mass Again noted moderate left hydronephrosis which may be secondary to 3 cm left external iliac lymph node Aorta normal size No bowel obstruction Colonic diverticulosis Mild free fluid in the pelvis Urinary Asif catheter in contracted urinary bladder 23 mm hypodense right common femoral mass IMPRESSION: Again noted moderate left hydronephrosis, which may be secondary to 3 cm left external iliac lymph node Also 23 mm hypodense right common femoral mass which may represent a necrotic lymph node Consider PET CT scan follow-up Medications / Prescriptions Medications or Prescriptions considered but not ordered:: Given Medication administrations:: Medication Administration History Discontinued Medications Acetaminophen (Acetaminophen 325 Mg Tablet) 650 mg PO X1 ONE Stop: 09/17/24 14:15 Last Admin: 09/17/24 15:19 Dose: 650 mg Documented By: MIKE Ketorolac Tromethamine (Ketorolac Inj 30 Mg/Ml Vial) 30 mg IVP X1 ONE Stop: 09/17/24 06:37 Last Admin: 09/17/24 07:28 Dose: 30 mg Documented By: RD Given Consultations Consultation(s) initiated? (list below): No Diagnosis Urogenital Female Differential Diagnosis: urinary tract infection, bacterial vaginosis, cervicitis and vaginitis Most likely diagnosis given after review of the tests above:: Left ureteral stenosis Admission Indicated Admission indicated?: not indicated Admission Request Was there a request for admission?: No Disposition Plan Disposition Plan: Discharge Discharge Attestation Discharge Attestation: The patient and all family members were given an opportunity to ask questions and understood the discharge instructions. Discharge instructions specifically effects, indications for sooner follow up or return to the emergency department, and the expected course of current diagnosis. Patient condition: Stable Discharge Plan Plan Patient Disposition: HOME (Self Care) Patient condition on transfer: Stable Prescriptions/Referrals Prescriptions/Med Rec: No Action nitrofurantoin monohyd/m-cryst [Macrobid] 100 mg capsule 100 mg PO BID Qty: 30 0RF Rx Instructions: must administer with a meal/food Referrals: Allen Gatica MD [Primary Care Provider] - In 1 week Problem List Clinical Impression: Acute suprapubic pain, Hydronephrosis of left kidney, Lymph node enlargement Patient/Caregiver Discharge Instructions Additional Instructions: Today you were seen regarding your lower abdominal pain. A CT scan of the low abdomen was completed which did not show any specific cause for lower abdominal pain. Labs from your blood work today were normal. Urine studies were normal and did not show any evidence of infection today. However on the CT scan there are some possible enlarged lymph nodes, one that is 3 cm on the left and 2 cm on the right. Your primary doctor can decide whether you need an additional scan to investiate these lymph nodes. The scan also shows water around the left kidney which was also there before. We would advise that you follow up with your Urologist, Dr. Escobar for further recommendations on the surgery needed as follow up. --- Hoy le examinaron por el dolor abdominal bajo. Se realiz? lisa tomograf?a computarizada del abdomen bajo que no mostr? ninguna causa espec?fica para el dolor abdominal bajo. Los an?lisis de nora de hoy fueron normales. Los an?lisis de orina fueron normales y no mostraron ninguna evidencia de infecci?n hoy. Sin embargo, en la tomograf?a computarizada hay algunos ganglios linf?ticos posiblemente agrandados, sergo de 3 cm a la izquierda y 2 cm a la derecha. Morgan m?dico de cabecera puede decidir si necesita lisa tomograf?a adicional para investigar estos ganglios linf?ticos. La tomograf?a tambi?n muestra agua alrededor del ri??n nathalia, que tambi?n estaba all? antes. Le recomendamos que consulte con morgan ur?logo, el Dr. Escobar, para obtener m?s recomendaciones sobre la cirug?a necesaria lauren seguimiento. Print Language: Gabonese Stand Alone Forms: Misti Award Info., Patient Portal Info Letter
[2024-09-17 07:01] LABS: Collection Type, Urine Clean Catch
[2024-09-17 07:01] LABS: Basophils % (Auto) 0 % (0-2.5); Eosinophils # (Auto) 0.1 Thou/mm3 (0.0-0.5); Eosinophils % (Auto) 1 % (0-10); Hematocrit 38.6 % (36.0-46.0); Hemoglobin 13.2 g/dL (12.0-16.0); Immature Granulocytes % (Auto) 1 % (0-0); Immature Granulocytes Auto 0.06 Thou/mm3 (0.00-0.00); Lymphocytes % (Auto) 11 % (10-50); Mean Corpuscular HGB Conc 34.2 g/dl (31.0-37.0); Mean Corpuscular Hemoglobin 26.2 pg (25.0-35.0); Mean Corpuscular Volume 77 fL (80-100); Monocytes # (Auto) 0.5 Thou/mm3 (0.0-0.8); Monocytes % (Auto) 5 % (0-12); Neutrophils # (Auto) 7.5 Thou/mm3 (1.8-7.7); Neutrophils % (Auto) 82 % (37-80); Nucleated Red Blood Cell % 0 /100 WBC (0); Platelet Count 209 Thou/mm3 (140-440); RDW Standard Deviation 46.3 fL (36.4-46.3); Red Blood Count 5.03 Miln/mm3 (4.00-5.20); White Blood Count 9.1 Thou/mm3 (3.6-11.0)
[2024-09-17 07:07] LABS: Bilirubin,Urine Negative (Negative); Blood,Urine Negative (Negative); Clarity,Urine Clear (Clear/Hazy); Color,Urine Yellow (Lt Yel-Yel); Glucose, Urine Negative (Negative); Ketones,Urine Negative (Negative); Leukocyte Esterase,Urine Negative (Negative); Nitrite,Urine Negative (Negative); PH,Urine 6.5 (5.0-7.0); Protein,Urine 1+ (Neg - Trace); RBC,Urine 1 /hpf (0-3); Specific Gravity,Urine 1.026 (1.001-1.035); Squamous Epithelial Cell,Urine < 1 /hpf (0-5); Urobilinogen,Urine Negative mg/dL (0.0-1.0); WBC,Urine 1 /hpf (0-5)
[2024-09-17 07:08] LABS: HCG Qualitative,Urine Negative
[2024-09-17 07:25] LABS: Alanine Aminotransferase 13 U/L (10-49); Albumin, Serum 4.6 gm/dL (3.5-5.0); Albumin/Globulin Ratio 1.6 (1.2-2.2); Alkaline Phosphatase 76 U/L (46-116); Anion Gap 11 (7-16); Aspartate Amino Transferase 15 U/L (0-34); BUN/Creatinine Ratio 21 Ratio (12-20); Bilirubin,Total 0.5 mg/dL (0.3-1.2); Blood Urea Nitrogen 17 mg/dL (9-23); Calcium 9.6 mg/dL (8.3-10.6); Calcium (Corrected) 9.6 mg/dL (8.5-10.1); Carbon Dioxide 21.6 mMol/L (20.0-31.0); Chloride 105 mMol/L (98-107); Creatinine (Component) 0.8 mg/dL (0.6-1.3); Globulin 2.8 gm/dL (2.3-3.5); Glucose 146 mg/dL (74-106); Lipase 41 U/L (12-53); Osmolality,Calculated 280 (275-295); Potassium 3.7 mMol/L (3.4-5.1); Sodium 138 mMol/L (136-145); Total Protein 7.4 gm/dL (5.7-8.2); eGFR > 60 See Note
[2024-09-17] MEDS: KETOROLAC INJ 30 MG/ML VIAL IVP (07:28)
--- NOTE | 2024-09-17 07:51 | XR_ITS ---
Examination: CT abdomen with intravenous contrast CT pelvis with intravenous contrast 2-D coronal reconstructions 2-D sagittal reconstructions Date and time of exam:September 17, 2024 10:30 AM Comparison August 05, 2024 INDICATIONS: Suprapubic pain and urinary retention symptoms beginning 2 days ago, history left hydronephrosis. CTDI: vol (mGy) 19.5 DLP: (mGycm) 667 Technique: Multiple axial sections of the abdomen and pelvis have been obtained. 64 slice high-resolution scanner used. 3 mm axial sections have been obtained, post intravenous injection 60 cc [id number] 2-D sagittal, coronal reconstructions obtained. Low dose protocols were performed. One or more of the following dose reduction techniques were used; automated exposure control, adjustment of the mA and/or KV according to patient size, use of iterative reconstruction technique. Findings: Large retrocardiac gastric hernia No focal liver or splenic lesion No gallstones No pancreatic mass Again noted moderate left hydronephrosis which may be secondary to 3 cm left external iliac lymph node Aorta normal size No bowel obstruction Colonic diverticulosis Mild free fluid in the pelvis Urinary Asif catheter in contracted urinary bladder 23 mm hypodense right common femoral mass IMPRESSION: Again noted moderate left hydronephrosis, which may be secondary to 3 cm left external iliac lymph node Also 23 mm hypodense right common femoral mass which may represent a necrotic lymph node Consider PET CT scan follow-up
[2024-09-17 08:30] VITALS: BP 173/98; PULSE 71; RESP 16; TEMP 36.8; O2SAT 98
[2024-09-17 11:55] VITALS: BP 156/90; PULSE 73; RESP 15; TEMP 37; O2SAT 97
[2024-09-17 13:25] VITALS: BP 150/93; PULSE 70; RESP 20; TEMP 37.1; O2SAT 96
[2024-09-17] MEDS: ACETAMINOPHEN 325 MG TABLET 650 MG PO (15:19)
== END 2024-09-17 15:52 | disposition home or self-care (01) ==
PROVIDERS: Nurse Practitioner Family; Emergency Provider Emergency Medicine; PCP Family Medicine
DX: N13.30 Unspecified hydronephrosis (principal); R59.0 Localized enlarged lymph nodes; I10 Essential (primary) hypertension; Z90.710 Acquired absence of both cervix and uterus
CPT/HCPCS: 51702; 36415; 74177; 80053; 81001; 81025; 83690; 85025; 87086; 96374; 99285; A4649; J1885; Q9967; A9270

== ENCOUNTER 2024-12-14 22:14 | Emergency (ER) | payer MEDICAID, SELFPAY ==
--- NOTE | 2024-12-14 22:37 | XR_ITS ---
Examination: CT abdomen and pelvis without contrast. Coronal 3-D reconstructions. Sagittal 2-D reconstructions. Date and time of exam:December 14, 2024 1137 hours Comparison September 17, 2024 INDICATIONS: Lower abdominal pain today CTDI: vol (mGy): 10.6 DLP: (mGycm): 545 Technique: Axial images of the abdomen have been obtained, 3 mm slice thickness Intravenous contrast material has not been administered. Low dose protocols were performed. One or more of the following dose reduction techniques were used; automated exposure control, adjustment of the mA and/or KV according to patient size, use of iterative reconstruction technique. Findings: Large retrocardiac gastric hernia No focal liver or splenic lesions No gallstones No pancreatic or adrenal mass Moderate left hydronephrosis again noted Normal appendix No bowel obstruction No pelvic mass 25 mm left external iliac lymph node Colonic diverticulosis Moderate osteopenia IMPRESSION: Again noted moderate left hydronephrosis which appears to be secondary to 25 mm left external iliac lymph node Consider PET CT scan follow-up
--- NOTE | 2024-12-14 22:37 | EDNOTE_ITS ---
ED Abdominal Pain RME/HPI General Chief Complaint: Abdominal Pain Stated complaint: ABDOMINAL PAIN Time seen by provider: 12/14/24 22:36 Arrival date/time: 12/14/24 22:14 RME / HPI RME / HPI narrative: This section includes all my notes and documentations, including HPI, PE, and ED course. Al Karimi MD HPI: 49 y/o female with Hx of Left Hydronephrosis and SHx of Hysterectomy and Tubal Ligation presents to ED c/o lower abdominal pain and nausea x few weeks, worse in the past few hours. Hysterectomy was performed in April 2024 resulting in urinary incontinence 2 weeks later. An attempt to surgically repair incontinence was unsuccessful. Patient currently takes unknown medications for constipation and BP management. Denies vomiting and fever. No other complaints. ROS: All negative except as documented in HPI. Physical Exam: General: Alert and oriented. No acute distress when remaining still. Eyes: Conjunctivae and lids clear. ENT: No nasal congestion. Neck: Supple. Heart: RRR. Lungs: No respiratory distress. Good air movement. No rhonchi, wheezing, rales. Abdomen: Soft and nontender. Normal bowel sounds. No distension. No rebound or guarding. Back: No CVA tenderness. Skin: Warm and dry. Neuro: Alert and oriented X 3. I reviewed all diagnostic test results. My review of the Abdomen/Pelvis CT report is again noted moderate left hydronephrosis which appears to be secondary to 25 mm left external iliac lymph node. My review of the Transvaginal US report is NAD. Blood tests and urine tests unremarkable. At this point, diagnoses include abdominal pain of unclear etiology. Treatment here included Zofran, Tylenol with Codeine. Significant improvement noted. Recommended more outpatient workup. Based on my best medical judgment, made decision no further evaluation or treatment indicated at this time. Patient understands and agrees to the discharge instructions customized and printed, see below. Discharge Instructions from Dr. Karimi printed for you: 1. After extensive evaluation (performed virtually every tests available in the emergency room), the exact cause of your abdominal pain was not determined. But there is no emergency, such as appendicitis needing urgent surgery. 2. And there is no serious infection, such as kidney infection. 3. The CT scan showed some enlarged lymph nodes in the abdomen. Lymph nodes are located throughout the body. They fight infections and diseases. So you and your private doctors need to find the cause of your enlarged lymph nodes in the abdomen. 4. CT scan later today, 12/15/2024, as scheduled. 5. See your doctor on 12/16/2024 for recheck and further care. Ask to review all test results and official radiology reports, to make sure you receive all necessary follow-ups and monitoring. Ask to help find the cause and treatment of your symptoms. You may need more care and tests and investigation not available here in the ER. Such as more imaging studies and referrals to see specialists. 6. Seek immediate medical care with worsening or with any concerns. Al Karimi MD Related Data Previous Rx's ?Medication ?Instructions ?Recorded nitrofurantoin 100 mg PO BID #30 caps 09/04 monohydrate/macrocrystals 100 mg capsule (Macrobid) acetaminophen 300 mg-codeine 30 mg 2 tab PO Q8H PRN pa in #20 tabs 12/15/24 tablet ondansetron 4 mg disintegrating 4 mg PO TID PRN nausea and 12/15/24 tablet vomiting 30 days #10 tabs Allergies Allergy/AdvReac Type Severity Reaction Status Date / Time No Known Allergies Allergy Verified 09/17/24 06:29 Review of Systems Review of Systems Systems Reviewed: All systems reviewed, normal except as documented Past Medical History Past Medical History CARDIAC: Positive Hypertension (not talking meds anymore per DR) and Varicose Veins GASTROINTESTINAL: Positive Gastrointestinal Disorders and Obesity GENITOURINARY: Positive Genitourinary Disorders (left hydronephrosis) REPRODUCTIVE: Positive Previous Pregnancies OTHER HISTORY: Positive Hospitalization (surgery, sepsis), Anesthesia Reactions (severe nausea) and Chicken Pox Surgical History SURGICAL: Positive Hysterectomy and Tubal Ligation ED Exam Narrative Physical exam: Refer to HPI above Course Quality Measures none Orders Category Date Time Status CT abdomen pelvis wo con Stat Exams 12/14/24 22:37 Completed US pelvic complete Stat Exams 12/15/24 01:13 Taken CBC Stat Lab 12/14/24 22:47 Completed CMP [Comprehensive Metabolic Panel] Stat Lab 12/14/24 22:47 Completed Magnesium Stat Lab 12/14/24 22:47 Completed UA, C/S IF [Urinalysis, C/S if Indicated] Stat Lab 12/14/24 22:47 Completed ACETAMINOPHEN w/COD 300-30 [Tylenol w/Cod #3] Med 12/14/24 22:36 Discontinued 2 tab PO X1 ONE Ondansetron Odt [Zofran Odt] Med 12/14/24 22:36 Discontinued 4 mg PO X1 ONE Vital Signs Vital signs: Vital Signs Temperature 97.5 F 12/15/24 00:10 Pulse Rate 77 12/15/24 00:10 Respiratory Rate 16 12/15/24 00:10 Blood Pressure 161/92 H 12/15/24 00:10 Pulse Oximetry (%) 96 12/15/24 00:10 Oxygen Delivery Method Room Air 12/15/24 00:10 Abdominal Pain MDM MDM Narrative MDM Narrative:: Scribe Attestation: Estrellita Upton, am scribing for and in the presence of Dr. Karimi. Provider Notation: Although this document has been carefully reviewed, there may still be some phonetic and other typographical errors.? These errors are purely grammatical due to imperfections in the software program and should not be construed in any way to? compromise the substance of the patient's medical care during this visit. 49 y/o female with Hx of Left Hydronephrosis and SHx of Hysterectomy and Tubal Ligation presents to ED c/o lower abdominal pain and nausea x approximately 6 hours. Patient data External records reviewed:: [facility] previous records (Prior ED records from 09/17/24 reviewed. Patient was seen for Acute suprapubic pain.) Clinical information provided by:: patient Social determinants that could affect healthcare access:: none Patient has the following chronic illnesses:: Hypertension, Varicose Veins, Obesity, Left Hydronephrosis How is presenting disease/condition affected by chronic disease/condition?: exacerbated by Evaluation data The following diagnostics were reviewed and interpreted by me:: lab results and radiology exam(s) Lab and/or radiology exams considered but not ordered:: None Interpretation Summary: I reviewed all diagnostic test results. My review of the Abdomen/Pelvis CT report is again noted moderate left hydronephrosis which appears to be secondary to 25 mm left external iliac lymph node. My review of the Transvaginal US report is NAD. Blood tests and urine tests unremarkable. Medications / Prescriptions Medications or Prescriptions considered but not ordered:: None Medication administrations:: Medication Administration History Discontinued Medications Acetaminophen/Codeine Phosphate (Acetaminophen W/Cod 300-30 Tablet) 2 tab PO X1 ONE Stop: 12/14/24 22:37 Last Admin: 12/14/24 23:05 Dose: 2 tab Documented By: SEEMA Ondansetron HCl (Ondansetron Odt 4 Mg Tabrap) 4 mg PO X1 ONE; Protocol Stop: 12/14/24 22:37 Last Admin: 12/14/24 23:05 Dose: 4 mg Documented By: SEEMA Tylenol with Codeine, Zofran. Consultations Consultation(s) initiated? (list below): No Diagnosis Differential diagnosis abdominal pain: abdominal pain, acute appendicitis, calculus of kidney, constipation, diverticulitis, endometriosis, gastroenteritis, pancreatitis, small bowel obstruction and other (Hydronephrosis) Most likely diagnosis given after review of the tests above:: Abdominal pain of unclear etiology. Admission Indicated Admission indicated?: not indicated Explain why admission is indicated or not indicated:: With significant improvement, there was no indication for admission. Admission Request Was there a request for admission?: No Disposition Plan Disposition Plan: Discharge Discharge Attestation Discharge Attestation: The patient and all family members were given an opportunity to ask questions and understood the discharge instructions. Discharge instructions specifically effects, indications for sooner follow up or return to the emergency department, and the expected course of current diagnosis. Patient condition: Stable Discharge Plan Plan Patient Disposition: HOME (Self Care) Prescriptions/Referrals Prescriptions/Med Rec: New acetaminophen-codeine 300-30 mg tablet 2 tab PO Q8H MDD 6 PRN (Reason: pain) Qty: 20 0RF ondansetron 4 mg tablet,disintegrating 4 mg PO TID PRN (Reason: nausea and vomiting) 30 Days Qty: 10 0RF No Action nitrofurantoin monohyd/m-cryst [Macrobid] 100 mg capsule 100 mg PO BID Qty: 30 0RF Rx Instructions: must administer with a meal/food Referrals: Mor Escobar MD [Primary Care Provider] - In 1 week Problem List Clinical Impression: Abdominal pain Patient/Caregiver Discharge Instructions Discharge Activity: activity as tolerated Education Materials: ED Abdominal Pain Unkn Cause Fem Additional Instructions: Discharge Instructions from Dr. Karimi printed for you: 1. After extensive evaluation (performed virtually every tests available in the emergency room), the exact cause of your abdominal pain was not determined. But there is no emergency, such as appendicitis needing urgent surgery. 2. And there is no serious infection, such as kidney infection. 3. The CT scan showed some enlarged lymph nodes in the abdomen. Lymph nodes are located throughout the body. They fight infections and diseases. So you and your private doctors need to find the cause of your enlarged lymph nodes in the abdomen. 4. CT scan later today, 12/15/2024, as scheduled. 5. See your doctor on 12/16/2024 for recheck and further care. Ask to review all test results and official radiology reports, to make sure you receive all necessary follow-ups and monitoring. Ask to help find the cause and treatment of your symptoms. You may need more care and tests and investigation not available here in the ER. Such as more imaging studies and referrals to see specialists. 6. Seek immediate medical care with worsening or with any concerns. Instrucciones de nida del Dr. Karimi, impresas para usted: 1. Tras lisa evaluaci?n exhaustiva (se realizaron pr?cticamente todas las pruebas disponibles en urgencias), no se determin? la causa exacta de robles dolor abdominal. Sin embargo, no se trata de lisa emergencia, lauren lisa apendicitis que requiera cirug?a urgente. 2. Tampoco hay lisa infecci?n grave, lauren lisa infecci?n renal. 3. La tomograf?a computarizada mostr? algunos ganglios linf?ticos inflamados en el abdomen. Los ganglios linf?ticos se encuentran por todo el cuerpo y combaten infecciones y enfermedades. Por lo tanto, usted y anika m?dicos privados deben determinar la causa de anika ganglios linf?ticos inflamados en el abdomen. 4. Tomograf?a computarizada m?s tarleo, 15/12/2024, seg?n lo programado. 5. Consulte con robles m?dico el 16/12/2024 para lisa nueva revisi?n y atenci?n adicional. Solicite revisar todos los resultados de las pruebas y los informes radiol?gicos oficiales para asegurarse de recibir todos los controles y monitoreo necesarios. Solicite ayuda para determinar la causa y el tratamiento de anika s?ntomas. Es posible que necesite m?s atenci?n, pruebas e investigaciones que no est?n disponibles en urgencias, lauren estudios de imagen adicionales y derivaciones a especialistas. 6. Busque atenci?n m?dica inmediata si robles condici?n empeora o tiene alguna inquietud. Print Language: Palauan Stand Alone Forms: [employer] Award Info., Patient Portal Info Letter
[2024-12-14 22:55] LABS: Collection Type, Urine Clean Catch
[2024-12-14] MEDS: ACETAMINOPHEN w/COD 300-30 TABLET 2 TAB PO (23:05)
[2024-12-14] MEDS: ONDANSETRON ODT 4 MG TABRAP PO (23:05)
[2024-12-14 23:08] LABS: Basophils # (Auto) 0.1 Thou/mm3 (0.0-0.2); Basophils % (Auto) 1 % (0-2.5); Eosinophils # (Auto) 0.3 Thou/mm3 (0.0-0.5); Eosinophils % (Auto) 3 % (0-10); Hematocrit 36.3 % (36.0-46.0); Hemoglobin 12.7 g/dL (12.0-16.0); Immature Granulocytes % (Auto) 1 % (0-0); Lymphocytes # (Auto) 1.8 Thou/mm3 (1.0-4.8); Lymphocytes % (Auto) 21 % (10-50); Mean Corpuscular Hemoglobin 28.2 pg (25.0-35.0); Mean Corpuscular Volume 81 fL (80-100); Monocytes # (Auto) 0.6 Thou/mm3 (0.0-0.8); Monocytes % (Auto) 7 % (0-12); Neutrophils # (Auto) 5.8 Thou/mm3 (1.8-7.7); Neutrophils % (Auto) 67 % (37-80); Nucleated Red Blood Cell % 0 /100 WBC (0); Platelet Count 249 Thou/mm3 (140-440); RDW Standard Deviation 39.7 fL (36.4-46.3); White Blood Count 8.6 Thou/mm3 (3.6-11.0)
[2024-12-14 23:21] LABS: Alanine Aminotransferase 11 U/L (10-49); Albumin, Serum 4.8 gm/dL (3.5-5.0); Albumin/Globulin Ratio 1.8 (1.2-2.2); Alkaline Phosphatase 69 U/L (46-116); Anion Gap 9 (7-16); Aspartate Amino Transferase 16 U/L (0-34); BUN/Creatinine Ratio 23 Ratio (12-20); Bilirubin,Total 0.4 mg/dL (0.3-1.2); Bilirubin,Urine Negative (Negative); Blood Urea Nitrogen 21 mg/dL (9-23); Blood,Urine Negative (Negative); Calcium 9.3 mg/dL (8.3-10.6); Calcium (Corrected) 9.3 mg/dL (8.5-10.1); Carbon Dioxide 27.5 mMol/L (20.0-31.0); Chloride 104 mMol/L (98-107); Clarity,Urine Clear (Clear/Hazy); Color,Urine Lt-Yellow (Lt Yel-Yel); Creatinine (Component) 0.9 mg/dL (0.6-1.3); Culture Indicated,Urine Not Indicated; Globulin 2.7 gm/dL (2.3-3.5); Glucose 115 mg/dL (74-106); Glucose, Urine Negative (Negative); Hyaline Casts,Urine < 1 /hpf (0-1); Ketones,Urine Negative (Negative); Leukocyte Esterase,Urine Negative (Negative); Magnesium 1.8 mg/dL (1.6-2.6); Nitrite,Urine Negative (Negative); Osmolality,Calculated 283 (275-295); PH,Urine 5.5 (5.0-7.0); Potassium 3.7 mMol/L (3.4-5.1); Protein,Urine Negative (Neg - Trace); RBC,Urine 3 /hpf (0-3); Sodium 140 mMol/L (136-145); Specific Gravity,Urine 1.021 (1.001-1.035); Squamous Epithelial Cell,Urine < 1 /hpf (0-5); Total Protein 7.5 gm/dL (5.7-8.2); Urobilinogen,Urine Negative mg/dL (0.0-1.0); WBC,Urine 1 /hpf (0-5); eGFR > 60 See Note
[2024-12-15 00:10] VITALS: BP 161/92; PULSE 77; RESP 16; TEMP 36.4; O2SAT 96
[2024-12-15 00:11] VITALS: BMI 31.2
--- NOTE | 2024-12-15 01:13 | XR_ITS ---
Examination: Pelvic ultrasound, transabdominal, complete Technique: Transabdominal ultrasound of the pelvis performed using grayscale imaging Date and time of exam: December 15, 2024 0121 hours INDICATIONS: Status post hysterectomy April 2024 with difficulty controlling the urinary bladder and urinary tract infections FINDINGS: Absent uterus Ovaries appear by bowel gas IMPRESSION: Limited study, no pelvic mass
[2024-12-15 02:25] VITALS: BP 143/70; PULSE 76; RESP 16; TEMP 36.7; O2SAT 98
== END 2024-12-15 02:26 | disposition home or self-care (01) ==
PROVIDERS: Emergency Provider Emergency Medicine; PCP Surgery
DX: N13.30 Unspecified hydronephrosis (principal); R59.0 Localized enlarged lymph nodes
CPT/HCPCS: 36415; 74176; 76856; 80053; 81001; 83735; 85025; 99284; Q0162; A9270

== ENCOUNTER → 2024-12-15 | Outpatient (CLI) | payer MEDICAID, SELFPAY ==
--- NOTE | 2024-12-15 14:00 | XR_ITS ---
Examination: CT abdomen with intravenous contrast CT pelvis with intravenous contrast 2-D coronal reconstructions 2-D sagittal reconstructions Date and time of exam:December 15, 2024 1427 hours Comparison made 2024 INDICATIONS: Urinary tract retention, moderate left hydronephrosis on CT examination December 14, 2024. CTDI: vol (mGy) 22 DLP: (mGycm) 1198 Technique: Multiple axial sections of the abdomen and pelvis have been obtained. 64 slice high-resolution scanner used. 3 mm axial sections have been obtained, post intravenous injection 60 cc [id number]-[id number] 2-D sagittal, coronal reconstructions obtained. Low dose protocols were performed. One or more of the following dose reduction techniques were used; automated exposure control, adjustment of the mA and/or KV according to patient size, use of iterative reconstruction technique. Findings: Large retrocardiac gastric hernia No focal liver or splenic lesions No gallstones No pancreatic or adrenal mass Moderate left hydronephrosis No ureteral calculi Minimal urinary bladder wall thickening 25 mm left external iliac lymph node IMPRESSION: Moderate left hydronephrosis, no ureteral calculi 25 mm left external iliac lymph node
== END | disposition home or self-care (01) ==
LOC: SCAT 13:52
PROVIDERS: PCP Family Medicine
DX: N13.30 Unspecified hydronephrosis (principal); S37.10XS Unspecified injury of ureter, sequela; X58.XXXS Exposure to other specified factors, sequela
CPT/HCPCS: 74177; A4649; Q9967